=== PATIENT | male | born 1995 | race Caucasian/White ===

== ENCOUNTER → 2017-04-24 | Outpatient (CLI) | payer BC ==
[2017-04-24 18:47] LABS: Basophils # (A) 0.1 k/uL (0-0.2); Basophils % (A) 1 %; CH 32.2; CHCM 35.4; Eosinophils # (A) 0.1 k/uL (0-0.7); Eosinophils % (A) 2 %; HCT 43.7 % (39.0-53.0); HDW 2.48; HGB 15.3 gm/dL (13.0-17.5); Luc # (Auto) 0.13; Luc % (Auto) 2; Lymphocytes # (A) 1.4 k/uL (1.0-4.8); Lymphocytes % (A) 27 %; MCH 31.9 pg (25.0-35.0); MCHC 34.9 g/dL (31.0-37.0); MCV 91.3 fL (80.0-100.0); Mean Platelet Volume 7.5; Monocytes # (A) 0.4 k/uL (0-1.0); Monocytes % (A) 8 %; Neutrophils # (A) 3.2 k/uL (1.3-7.7); Neutrophils % (A) 60 %; RBC 4.79 m/uL (4.30-5.90); WBC 5.3 k/uL (3.8-10.6); WBC (Perox) 5.33
[2017-04-24 18:48] LABS: ALT 48 U/L (21-72); AST 31 U/L (17-59); Alkaline Phosphatase 74 U/L (38-126); Anion Gap 13 mmol/L; Blood Urea Nitrogen 24 mg/dL (9-20); Calcium 9.2 mg/dL (8.4-10.2); Carbon Dioxide 26 mmol/L (22-30); Chloride 101 mmol/L (98-107); Cholesterol 115 mg/dL (<200); Glucose 84 mg/dL (74-99); HDL Cholesterol 48 mg/dL (40-60); Non-African American GFR(MDRD) >60 (>60 ml/min/1.73 sqM); Potassium 4.2 mmol/L (3.5-5.1); Sodium 140 mmol/L (137-145); Total Bilirubin 0.5 mg/dL (0.2-1.3); Total Protein 7.2 g/dL (6.3-8.2); Triglycerides 74 mg/dL (<150)
== END ==
LOC: MMGSC 15:41
PROVIDERS: ATTEND Family Medicine
DX: Z00.00 Encounter for general adult medical examination without abnormal findings (principal)
CPT/HCPCS: 36415; 80053; 80061; 84439; 84443; 85025

== ENCOUNTER → 2021-12-03 | Outpatient (CLI) | payer SELFPAY ==
[2021-12-03 14:24] LABS: Follicle Stimulating Hormone 4.3 mIU/mL; Luteinizing Hormone 4.4 mIU/mL
== END | disposition home or self-care (01) ==
LOC: LABWHC1 08:52
PROVIDERS: ATTEND Nurse Practitioner Family
DX: R68.82 Decreased libido (principal)
CPT/HCPCS: 36415; 83001; 83002; 84403

== ENCOUNTER → 2023-09-19 | Outpatient (CLI) | payer OTHER ==
--- NOTE | 2023-09-22 17:36 | MR ---
EXAMINATION TYPE: MR knee RT wo con DATE OF EXAM: 09/19/2023 COMPARISON: None HISTORY: Right inner knee pain and painful knee cap for 6 months. No known injury. TECHNIQUE: Multiplanar, multisequence imaging of the right knee is performed without IV contrast. FINDINGS: There is no bone contusion or fracture. There is a tiny joint effusion. The cruciate and collateral ligaments are intact. On the coronal view, there is a strong suggestion of an oblique tear through the body and posterior h orn of the medial meniscus. The lateral meniscus is intact. Patellar tendon and quadriceps tendon are normal. All 3 compartments of the knee are well-maintained without significant degeneration. IMPRESSION: 1. Probable small oblique tear of the posterior horn and body of the medial meniscus. 2. Small joint effusion.
== END | disposition home or self-care (01) ==
LOC: RADMRIMAIN 17:26
PROVIDERS: ATTEND Orthopaedic Surgery
DX: M25.461 Effusion, right knee (principal); M65.261 Calcific tendinitis, right lower leg; M23.306 Other meniscus derangements, unspecified meniscus, right knee; M23.91 Unspecified internal derangement of right knee